=== PATIENT | female | born 1960 | race African-American/Black ===

== ENCOUNTER → 2023-06-01 13:53 | Outpatient (REF) | payer MEDICARE, OTHER, SELFPAY | LOC: HWWDC 13:53 | PROVIDERS: ATTENDING PHYSICIAN Internal Medicine Hematology & Oncology; FAMILY PHYSICIAN Internal Medicine | DX: Z12.31 Encounter for screening mammogram for malignant neoplasm of breast (principal) | CPT/HCPCS: 77063; 77067 ==

== ENCOUNTER → 2023-06-29 12:58 | Outpatient (REF) | payer MEDICARE, OTHER, SELFPAY | LOC: RCS 12:58 | PROVIDERS: ATTENDING PHYSICIAN Nuclear Medicine Nuclear Cardiology; FAMILY PHYSICIAN Internal Medicine | DX: R07.89 Other chest pain (principal) | CPT/HCPCS: 93017; 93320; 93325; 93350 ==

== ENCOUNTER → 2023-08-21 13:37 | Outpatient (REF) | payer MEDICARE, OTHER, SELFPAY ==
[2023-08-21 14:33] LABS: % Basophils 0.4 % (0-2); % Eosinophils 1.9 % (0-6); % Immature Granulocytes 0.3 % (0-0.5); % Lymphocytes 29.6 % (20.5-51.1); % Monocytes 7.5 % (1.7-9.3); % Neutrophils 60.3 % (42.2-75.2); Absolute Eosinophils 0.2 10^3/uL (0-0.7); Absolute Lymphocytes 2.9 10^3/uL (1.2-3.4); Absolute Monocytes 0.7 10^3/uL (0.1-0.6); Absolute Neutrophils 5.9 10^3/uL (1.4-6.5); Hemoglobin 11.8 g/dL (12.0-16.0); Mean Corp Hgb Conc. 31.1 g/dL (33.0-37.0); Mean Corpuscular Hgb 28.4 pg (27.0-31.0); Mean Corpuscular Volume 91.6 fL (81.0-99.0); Nucleated Red Blood Cells % 0 %; Platelet Count 282 10^3/uL (130-400); Red Blood Cell Count 4.15 10^6/uL (4.20-5.40); Red Cell Dist. Width 13.9 % (11.5-14.5); White Blood Cell Count 9.9 10^3/uL (4.8-10.8)
[2023-08-21 14:52] LABS: ALT (SGPT) 14 U/L (0-35); AST (SGOT) 21 U/L (14-36); Albumin 4.5 g/dl (3.5-5.0); Alkaline Phosphatase 122 U/L (38-126); Blood Urea Nitrogen 16 mg/dl (7-17); Calcium 10.1 mg/dl (8.4-10.2); Carbon Dioxide 28 mmol/L (22-30); Chloride 102 mmol/L (98-107); Glucose 97 mg/dl (70-99); Potassium 4.6 mmol/L (3.5-5.1); Sodium 141 mmol/L (135-145); Total Bilirubin 0.4 mg/dl (0.2-1.3); Total Protein 8.5 g/dl (6.3-8.2); eGFR > 60.00
== END ==
LOC: REG 13:37
PROVIDERS: ATTENDING PHYSICIAN Internal Medicine Hematology & Oncology; FAMILY PHYSICIAN Internal Medicine
DX: M32.9 Systemic lupus erythematosus, unspecified (principal); C50.112 Malignant neoplasm of central portion of left female breast; D50.9 Iron deficiency anemia, unspecified
CPT/HCPCS: 36415; 80053; 85025

== ENCOUNTER → 2024-02-20 07:30 | Outpatient (REF) | payer MEDICARE, OTHER, SELFPAY | LOC: RAD 07:30 | PROVIDERS: ATTENDING PHYSICIAN Internal Medicine Hematology & Oncology; FAMILY PHYSICIAN Internal Medicine | DX: M32.9 Systemic lupus erythematosus, unspecified (principal); C50.112 Malignant neoplasm of central portion of left female breast; D50.9 Iron deficiency anemia, unspecified | CPT/HCPCS: 71260; 74177; 78306; A9503; Q9967 ==

== ENCOUNTER → 2024-04-26 10:19 | Outpatient (REF) | payer MEDICARE, OTHER, SELFPAY ==
[2024-04-26 11:38] LABS: % Basophils 0.6 % (0-2); % Eosinophils 2.5 % (0-6); % Immature Granulocytes 0.3 % (0-0.5); % Lymphocytes 23.9 % (20.5-51.1); % Monocytes 6.7 % (1.7-9.3); Absolute Eosinophils 0.2 10^3/uL (0-0.7); Absolute Lymphocytes 1.7 10^3/uL (1.2-3.4); Absolute Monocytes 0.5 10^3/uL (0.1-0.6); Absolute Neutrophils 4.7 10^3/uL (1.4-6.5); Hematocrit 41.9 % (37.0-47.0); Hemoglobin 13.1 g/dL (12.0-16.0); Mean Corp Hgb Conc. 31.3 g/dL (33.0-37.0); Mean Corpuscular Hgb 28.2 pg (27.0-31.0); Mean Corpuscular Volume 90.1 fL (81.0-99.0); Mean Platelet Volume 10.6 fL (7.4-10.4); Nucleated Red Blood Cells % 0 %; Platelet Count 318 10^3/uL (130-400); Red Blood Cell Count 4.65 10^6/uL (4.20-5.40); White Blood Cell Count 7.2 10^3/uL (4.8-10.8)
[2024-04-26 11:45] LABS: Urine Albumin Negative (Neg - Trace); Urine Bilirubin Negative (Negative); Urine Character Clear (Clear); Urine Color Yellow; Urine Glucose Negative (Negative); Urine Ketone Negative (Negative); Urine Leukocyte Negative (Negative); Urine Nitrite Negative (Negative); Urine Occult Blood Negative (Negative); Urine Specific Gravity 1.015 (<1.030); Urine Urobilinogen Negative (Neg - 1+)
[2024-04-26 11:54] LABS: Erythrocyte Sed Rate 67 mm/hour (0-20)
[2024-04-26 12:11] LABS: ALT (SGPT) 16 U/L (0-35); AST (SGOT) 22 U/L (14-36); Albumin 4.4 g/dl (3.5-5.0); Alkaline Phosphatase 128 U/L (38-126); Blood Urea Nitrogen 13 mg/dl (7-17); Calcium 9.9 mg/dl (8.4-10.2); Carbon Dioxide 31 mmol/L (22-30); Chloride 100 mmol/L (98-107); Glucose 105 mg/dl (70-99); Potassium 4.5 mmol/L (3.5-5.1); Sodium 139 mmol/L (135-145); Total Bilirubin 0.4 mg/dl (0.2-1.3); Total Protein 8.2 g/dl (6.3-8.2); eGFR > 60.00
[2024-04-26 12:13] LABS: Protein/creatinine Ratio 0.1; Urine Protein 7 mg/dl
[2024-04-26 12:28] LABS: Vitamin D, 25-OH*** 38.5 ng/mL (30-80)
[2024-04-26 12:42] LABS: TSH Reflex To Free T4 1.81 uIU/ml (0.47-4.68)
[2024-04-26 13:01] LABS: Vitamin B12 833 pg/ml (239-931)
[2024-04-28 07:08] LABS: CCP Antibody IgG/IgA 7 Units (0-19)
[2024-04-28 07:31] LABS: ANA, IgG Reflex to HEp-2 Detected (None Detected)
[2024-04-28 08:07] LABS: SSA 52 (Ro)(ENA) Ab, IgG 3 AU/mL (0-40); SSA 60 (Ro)(ENA) Ab, IgG 5 AU/mL (0-40); SSB (La)(ENA) Ab, IgG 1 AU/mL (0-40); Smith (ENA) Antibody, IgG 8 AU/mL (0-40)
[2024-04-28 08:12] LABS: Smith/RNP (ENA), IgG 23 Units (0-19)
[2024-04-28 08:44] LABS: Cardiolipin IgA Antibody 15 APL (<=11); Cardiolipin IgM Antibody <10 MPL (<=12); Cardiolipin Igg Antibody <10 GPL (<=14)
[2024-04-28 23:34] LABS: Complement C3 141 mg/dl (88-165)
[2024-04-29 00:46] LABS: ds-DNA Ab, IgG Reflex To Titer 162 IU (0-24)
== END ==
LOC: RAD 10:19
PROVIDERS: ATTENDING PHYSICIAN Internal Medicine Rheumatology
DX: E07.9 Disorder of thyroid, unspecified (principal); E53.8 Deficiency of other specified B group vitamins; E55.9 Vitamin D deficiency, unspecified; M32.0 Drug-induced systemic lupus erythematosus; I21.4 Non-ST elevation (NSTEMI) myocardial infarction
CPT/HCPCS: 36415; 72040; 80053; 81003; 82306; 82570; 82607; 84156; 84443; 85025; 85610; 85613; 85652; 85730; 86038; 86140; 86146; 86147; 86160; 86200; 86225; 86235; 86430

== ENCOUNTER 2024-06-15 13:08 | Emergency (ER) | payer MEDICARE, OTHER, SELFPAY ==
[2024-06-15] VITALS (7 sets, daily range): BP systolic 143–163; BP diastolic 73–86; BMI 25.7
[2024-06-15 13:46] LABS: % Basophils 0.6 % (0-2); % Eosinophils 2.4 % (0-6); % Immature Granulocytes 0.2 % (0-0.5); % Lymphocytes 26.4 % (20.5-51.1); % Monocytes 8.3 % (1.7-9.3); % Neutrophils 62.1 % (42.2-75.2); Absolute Basophils 0.1 10^3/uL (0-0.2); Absolute Eosinophils 0.2 10^3/uL (0-0.7); Absolute Lymphocytes 2.7 10^3/uL (1.2-3.4); Absolute Monocytes 0.9 10^3/uL (0.1-0.6); Absolute Neutrophils 6.3 10^3/uL (1.4-6.5); Hematocrit 37.6 % (37.0-47.0); Hemoglobin 12.2 g/dL (12.0-16.0); Mean Corp Hgb Conc. 32.4 g/dL (33.0-37.0); Mean Corpuscular Hgb 29.1 pg (27.0-31.0); Mean Corpuscular Volume 89.7 fL (81.0-99.0); Mean Platelet Volume 10.4 fL (7.4-10.4); Nucleated Red Blood Cells % 0 %; Platelet Count 272 10^3/uL (130-400); Red Blood Cell Count 4.19 10^6/uL (4.20-5.40); Red Cell Dist. Width 14.3 % (11.5-14.5); White Blood Cell Count 10.2 10^3/uL (4.8-10.8)
[2024-06-15 13:51] LABS: Urine Albumin 2+ (Neg - Trace); Urine Bilirubin Negative (Negative); Urine Character Clear (Clear); Urine Color Yellow; Urine Glucose Negative (Negative); Urine Ketone Negative (Negative); Urine Leukocyte 3+ (Negative); Urine Nitrite Positive (Negative); Urine Occult Blood 4+ (Negative); Urine Urobilinogen Negative (Neg - 1+)
[2024-06-15 14:03] LABS: ALT (SGPT) 15 U/L (0-35); AST (SGOT) 20 U/L (14-36); Albumin 3.9 g/dl (3.5-5.0); Alkaline Phosphatase 117 U/L (38-126); Blood Urea Nitrogen 16 mg/dl (7-17); Calcium 9.3 mg/dl (8.4-10.2); Carbon Dioxide 32 mmol/L (22-30); Chloride 106 mmol/L (98-107); Glucose 96 mg/dl (70-99); Lipase 60 U/L (23-300); Potassium 3.6 mmol/L (3.5-5.1); Sodium 143 mmol/L (135-145); Total Bilirubin 0.4 mg/dl (0.2-1.3); Total Protein 7.8 g/dl (6.3-8.2); eGFR > 60.00
[2024-06-15 14:15] LABS: Troponin I < 0.012 ng/ml
[2024-06-15 14:21] LABS: Urine Bacteria Moderate (Negative); Urine White Cell >100 /HPF (0-5)
--- NOTE | 2024-06-15 18:59 | ED.GENMED ---
History of Present Illness
<Ivis oCle PA-C - Last Filed: 06/15/24 21:15>
General
Chief Complaint: Flank Pain
Source: patient
Exam Limitations: none
Time Seen by Provider: 06/15/24 17:29
Nursing documentation reviewed up to this point in time: agreed with
History of Present Illness
History of Present Illness:
63 y/o F
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
kidney stones
here with multiple complaints
1 week of 'peeing sand'gritty feeling and discomfort with urination
some bladder pain with uriation as well
inc in frequency
voiding well though, not dribbling
no feve/rchills/vomiting
but she has had R back pain/side pain a few days ago but that seemed to subside
alos with a pain in the back of her head, constant, not positional, feels like something hit her in the back of the head, paininto the neck both sides and shoulders
she has been under stress but doesn't feel like this is a tension headache
she takes tylenol and motrin, last dose las tnight and it doesn't really help
she says she has had this exact pain before and 'no one can figure it out.'
pt has not had any photophobia, weakness, numbness
she is able toeventually sleep
Past History
<Ivis Cole PA-C - Last Filed: 06/15/24 21:15>
Past History
ED Past Medical History: Other (Lupus, breast cancer, aortic stenosis, 3rd degree hb)
ED Past Surgical History: Cardiac and Gynecological
Social History
Tobacco: Non-smoker
Alcohol: None
Drug: None
Personal:
Living: with family
Family History
Family History: CAD
Review of Systems
<Ivis Cole PA-C - Last Filed: 06/15/24 21:15>
Review of Systems
Allergies reviewed?: Yes
All Other Systems: Not applicable
Phy Exam
<Ivis Cole PA-C - Last Filed: 06/15/24 21:15>
Physical Exam
Physical Exam:
GENERAL: Alert , in no apparent distress
HEAD: NCAT
EYE: pupils equal and reactive, no nystagmus, no photophobia
NECK: Supple,full rom, slight tenderness upper back/neck b/l no midleint ednereness; full ROM ;
ENT: o/p clr, mmm.
CARDIAC: Regular rate and rhythm . no edema
LUNGS: Clear breath sounds bilaterally, no acute respiratory distress, no wheezes/rales/rhonchi
ABDOMEN: Soft, mild lower abd tendreness over bladder, no r/g, no cvat
NEUROLOGICAL: Alert and orientedx 4, cn intact, no facial asymmetry, 5/5 strength in UE/LE, sensation intact, romberg neg, ambulates without assistance, neg pronator drift
SKIN: Warm and dry, skin intact.
MUSCULOSKELETAL: No edema, well perfused.
PSYCH: Normal and appropriate interaction.
Course
<Ivis Cole PA-C - Last Filed: 06/15/24 21:15>
Orders/Labs/Results
Orders:
Orders
06/15/24 13:26
Electrocardiogram (*1) Urgent
Reason for Study: Abdominal Pain
Head wo Contrast CT [CT Head W/o Iv Contrast] Urgent
Comment:
Reason For Exam: pain
EKG- Treatment ONCE
06/15/24 13:28
Complete Blood Count/With Diff Urgent
Comprehensive Metabolic Panel Urgent
Lipase Urgent
Troponin I Urgent
Urinalysis Reflex To Culture Urgent
Date Specimen was Collected: 06/15/24
Time Specimen was Collected: 13:
Urine Microscopic Reflex Cult Urgent
Urine Culture Urgent
ABRAHAM Source: U
Specimen Description:
Date Specimen was Collected: 06/15/24
Time Specimen was Collected: :
06/15/24 18:46
CT Abd/pel Without Iv Or Oral Urgent
Comment:
Reason For Exam: back pain, uti, h/o kidney stones
0.9% Sodium Chloride 1000 ml [Nss] 1,000 ml IV BOLUS
CefTRIAXone [Rocephin] 2,000 mg IV NOW STA
Ketorolac [Toradol] 15 mg IV NOW STA
06/15/24 18:55
Sterile Water [Sterile Water For Injection] 20 ml .ROUTE .STK-MED
06/15/24 21:13
Phenazopyridine HCl [Pyridium] 200 mg PO NOW STA
Abnormal Lab Results
06/15/24
13:28
RBC 4.19 L 10^6/uL
(4.20-5.40)
MCHC 32.4 L g/dL
(33.0-37.0)
Absolute Monos (auto) 0.9 H 10^3/uL
(0.1-0.6)
Carbon Dioxide 32 H mmol/L
(22-30)
Ur Occult Blood Reflex 4+ A
(Negative)
Urine Nitrite (Reflex) Positive A
(Negative)
Leukocyte Esterase Rfl 3+ A
(Negative)
Urine RBC 7-10 A /HPF
(0-2)
Urine WBC (Reflex) >100 A /HPF
(0-5)
Urine Bacteria (Reflex) Moderate A
(Negative)
Urine Albumin (Reflex) 2+ A
(Neg - Trace)
06/15/24 13:28
06/15/24 13:28
Vital Signs
Initial and Last Documented VS:
Initial Vital Signs
Temp Pulse Resp BP Pulse Ox
97.7 F 71 16 163/82 100
06/15/24 13:23 06/15/24 13:23 06/15/24 13:23 06/15/24 13:23 06/15/24 13:23
Last Documented Vital Signs
Temp Pulse Resp BP Pulse Ox
97.7 F 73 11 143/79 99
06/15/24 13:23 06/15/24 22:00 06/15/24 22:00 06/15/24 22:00 06/15/24 22:00
<Jessica Ponce PA-C - Last Filed: 06/16/24 03:53>
Orders/Labs/Results
Orders:
Orders
06/15/24 13:26
Electrocardiogram (*1) Urgent
Reason for Study: Abdominal Pain
Head wo Contrast CT [CT Head W/o Iv Contrast] Urgent
Comment:
Reason For Exam: pain
EKG- Treatment ONCE
06/15/24 13:28
Complete Blood Count/With Diff Urgent
Comprehensive Metabolic Panel Urgent
Lipase Urgent
Troponin I Urgent
Urinalysis Reflex To Culture Urgent
Date Specimen was Collected: 06/15/24
Time Specimen was Collected: 13:26
Urine Microscopic Reflex Cult Urgent
Urine Culture Urgent
ABRAHAM Source: U
Specimen Description:
Date Specimen was Collected: 06/15/24
Time Specimen was Collected: 13:26
06/15/24 18:46
CT Abd/pel Without Iv Or Oral Urgent
Comment:
Reason For Exam: back pain, uti, h/o kidney stones
0.9% Sodium Chloride 1000 ml [Nss] 1,000 ml IV BOLUS
CefTRIAXone [Rocephin] 2,000 mg IV NOW STA
Ketorolac [Toradol] 15 mg IV NOW STA
06/15/24 18:55
Sterile Water [Sterile Water For Injection] 20 ml .ROUTE .STK-MED
06/15/24 21:13
Phenazopyridine HCl [Pyridium] 200 mg PO NOW STA
Abnormal Lab Results
06/15/24
13:28
RBC 4.19 L 10^6/uL
(4.20-5.40)
MCHC 32.4 L g/dL
(33.0-37.0)
Absolute Monos (auto) 0.9 H 10^3/uL
(0.1-0.6)
Carbon Dioxide 32 H mmol/L
(22-30)
Ur Occult Blood Reflex 4+ A
(Negative)
Urine Nitrite (Reflex) Positive A
(Negative)
Leukocyte Esterase Rfl 3+ A
(Negative)
Urine RBC 7-10 A /HPF
(0-2)
Urine WBC (Reflex) >100 A /HPF
(0-5)
Urine Bacteria (Reflex) Moderate A
(Negative)
Urine Albumin (Reflex) 2+ A
(Neg - Trace)
06/15/24 13:28
06/15/24 13:28
Vital Signs
Initial and Last Documented VS:
Initial Vital Signs
Temp Pulse Resp BP Pulse Ox
97.7 F 71 16 163/82 100
06/15/24 13:23 06/15/24 13:23 06/15/24 13:23 06/15/24 13:23 06/15/24 13:23
Last Documented Vital Signs
Temp Pulse Resp BP Pulse Ox
97.7 F 73 11 143/79 99
06/15/24 13:23 06/15/24 22:00 06/15/24 22:00 06/15/24 22:00 06/15/24 22:00
<Ivis Cole PA-C - Last Filed: 06/15/24 21:15>
MDM/Problems Addressed
Differential Diagnosis Includes:
kidney stone, pyelo, uti, headache/migraine/tendsion headache
MDM/Problems Addressed:
63 y/o F
many chronic med problems
lupus
here with 2 complaints
urinary syptmoms x 1 week
headache posterior/neckpain chronic but acute exacerbation
has had eval before for this pain without dx
but she does have 'migraines': as previous history
no change in position with headache
no red flag symptoms
neur ointact
head ct neg
also with UTI
no vomiting/fever/leukocyotiss
unlikely pyelo
ct stone search pending
if neg, d/c with cefdinir, pyiriudm
<Jessica Ponce PA-C - Last Filed: 06/16/24 03:53>
*Critical Care Note
Total Time (30-74mins, 75-104mins- exclusive of procedures): Not Applicable
<Jessica Ponce PA-C - Last Filed: 06/16/24 03:53>
Update Note
Update Note:
Update 9:02 PM: Received patient in signout. CT abdomen/pelvis report reviewed which shows no evidence of obstructing urinary calculi or hydronephrosis. Discussed at bedside with patient. Patient otherwise well-appearing. She did receive a dose
of IV Rocephin in ED. Patient will be discharged with p.o. antibiotics for UTI and close return precautions. Patient comfortable with plan stable for discharge home
ED Attending Note
<Ivis Cole PA-C - Last Filed: 06/15/24 21:15>
-
Portions of this chart may have been created with voice recognition software.� Occasional wrong word or��sound alike� substitutions may have occurred due to the inherent limitations of voice recognition software.
Discharge Plan
Departure
Patient Disposition: Home (Routine Discharge)
Date of Disposition: 06/15/24
Time of Disposition: 22:18
Patient with high blood pressure during this ER visit?: Yes
Discharge Problem:
Headache, UTI (urinary tract infection)
Instructions: Urinary tract infection in adults - ED discharge instructions, Headache in adults - ED discharge instructions
Prescriptions:
New
cefdinir 300 mg capsule
300 mg PO BID Qty: 14 0RF
phenazopyridine [Pyridium] 200 mg tablet
200 mg PO TID PRN (Reason: Pain) Qty: 5 0RF
No Action
hydroxychloroquine 200 MG tablet
200 mg PO BID
zolpidem [Ambien CR] 6.25 MG tablet,ext release multiphase
6.25 mg PO PRN PRN (Reason: insomnia)
acetaminophen 325 MG tablet
650 mg PO Q4HPRN PRN (Reason: mild pain) 0RF
metoprolol succinate 25 mg Tablet Extended Release 24 Hr
25 mg PO DAILY
letrozole 2.5 mg Tablet
2.5 mg PO DAILY
Referrals:
Thalia Piña DO [Family Provider] -
Activity Restrictions/Additional Instructions:
Your blood work was fairly reassuring but your urine is positive for a UTI. Your CAT scan also was negative of your head. Your CT of your abdomen showed no evidence of obstructing kidney stone. Please take cefdinir starting tomorrow twice a day
for 7 days. You were given your first dose of antibiotics here. For the painful urination you can take Pyridium 3 times a day as needed for 2 days. Additionally you can to Tylenol and ibuprofen for your headache. Please follow-up with your
family doctor in the next week. Return for any worsening symptoms like high fever, vomiting, severe back pain, any concerning headache symptoms etc.
Interventions
Interventions:
*Risk Screen - Suicide Last Done: 06/15/24 13:23
*General Assessment Last Done: 06/15/24 18:59
*Neglect/Abuse Screening Last Done: 06/15/24 13:23
*ED- Fall Risk Assessment Last Done: 06/15/24 13:23
*ED COVID-19 Vaccine History Last Done: 06/15/24 18:59
*Nursing Disposition Last Done: 06/15/24 22:34
BE-Rclyjr-Eqwbppytpn Assessment Last Done: 06/15/24 18:59
ED-Female Genitourinary Assessment Last Done: 06/15/24 18:59
Discharge Date and Time
Discharge Date/Time: 06/15/24 22:35
Print Language: URDU
[2024-06-15] MEDS: NSS 1000 IV (19:10)
[2024-06-15] MEDS: TORADOL 15 MG IV (19:11)
[2024-06-15] MEDS: ROCEPHIN 2000 MG IV (19:11)
[2024-06-15] MEDS: Pyridium 200 MG PO (22:08)
== END 2024-06-15 22:35 | disposition home or self-care (01) ==
LOC: EMR 13:08
PROVIDERS: Emergency Medicine; EMERGENCY PHYSICIAN Emergency Medicine; FAMILY PHYSICIAN Internal Medicine
DX: R51.9 Headache, unspecified (principal); N39.0 Urinary tract infection, site not specified; M32.9 Systemic lupus erythematosus, unspecified; I35.0 Nonrheumatic aortic (valve) stenosis; I44.2 Atrioventricular block, complete; I25.10 Atherosclerotic heart disease of native coronary artery without angina pectoris; Z82.49 Family history of ischemic heart disease and other diseases of the circulatory system; Z85.3 Personal history of malignant neoplasm of breast; Z87.440 Personal history of urinary (tract) infections; Z87.442 Personal history of urinary calculi
CPT/HCPCS: 99284; 96374; 96375; 70450; 74176; 80053; 81003; 81015; 83690; 84484; 85025; 87071; 87086; 87186; 93005

== ENCOUNTER → 2024-06-25 12:59 | Outpatient (REF) | payer MEDICARE, OTHER, SELFPAY | LOC: RCS 12:59 | PROVIDERS: ATTENDING PHYSICIAN Nuclear Medicine Nuclear Cardiology; FAMILY PHYSICIAN Internal Medicine | DX: Z95.2 Presence of prosthetic heart valve (principal); Q23.1 Congenital insufficiency of aortic valve; I35.0 Nonrheumatic aortic (valve) stenosis | CPT/HCPCS: 93306 ==

== ENCOUNTER → 2024-08-12 12:54 | Outpatient (REF) | payer MEDICARE, OTHER, SELFPAY | LOC: WDC 12:54 | PROVIDERS: ATTENDING PHYSICIAN Internal Medicine Hematology & Oncology; FAMILY PHYSICIAN Internal Medicine | DX: Z12.31 Encounter for screening mammogram for malignant neoplasm of breast (principal) | CPT/HCPCS: 77063; 77067 ==

== ENCOUNTER → 2024-12-02 14:10 | Outpatient (REF) | payer MEDICARE, OTHER, SELFPAY | LOC: HWRAD 14:10 | PROVIDERS: ATTENDING PHYSICIAN Podiatrist Foot & Ankle Surgery; FAMILY PHYSICIAN Internal Medicine | DX: M77.42 Metatarsalgia, left foot (principal); M77.41 Metatarsalgia, right foot; G57.61 Lesion of plantar nerve, right lower limb | CPT/HCPCS: 73630 ==